=== PATIENT | female | born 1975 | race Caucasian/White ===

== ENCOUNTER 2023-05-07 12:48 | Emergency (ER) | payer OTHER, SELFPAY ==
[2023-05-07 12:52] VITALS: BP 141/82
[2023-05-07] MEDS: ZOFRAN ODT (ORALLY DISINTEGRATING) 4 MG PO (13:02)
[2023-05-07 13:36] LABS: Urine Albumin Negative (Neg - Trace); Urine Bilirubin Negative (Negative); Urine Character Clear (Clear); Urine Color Yellow; Urine Glucose Negative (Negative); Urine Ketone Negative (Negative); Urine Leukocyte Negative (Negative); Urine Nitrite Negative (Negative); Urine Occult Blood 2+ (Negative); Urine Urobilinogen Negative (Neg - 1+)
[2023-05-07 13:52] LABS: Urine White Cell None Seen /HPF (0-5)
[2023-05-07 13:54] LABS: HCG, Urine Qualitative Screen Negative
--- NOTE | 2023-05-07 13:58 | ED.GENMED ---
History of Present Illness
<Azalia Romero PA-C - Last Filed: 05/07/23 18:02>
General
Chief Complaint: Abdominal Pain
Source: patient
Exam Limitations: none
Time Seen by Provider: 05/07/23 13:41
Nursing documentation reviewed up to this point in time: agreed with
Travel History
Have you had any contact with someone who has COVID-19?: No
Do you have any symptoms of coronavirus? Fever > 100 degrees, chills, cough, shortness of breath, sore throat, loss of taste or smell, muscle aches, or headache?: No
History of Present Illness
History of Present Illness:
Patient is a 47-year-old female with history of kidney stones presenting for evaluation of nausea and vomiting. Symptoms started acutely this morning around 8 AM and reports 5 episodes of vomiting since. She has had multiple bowel movements today
but denies any diarrhea or blood in her stool. Patient does report that on Saturday she had an acute onset episode of left upper abdominal pain that lasted about an hour and a half. That episode was associated with some mild nausea but no vomiting.
She denies any alleviating or exacerbating factors to abdominal pain on Saturday. She has no abdominal pain currently.
She denies any fever, chills, chest pain, shortness of breath. No known sick contacts. Patient reports drinking very little alcohol.
Patient does have a history of kidney stones but states that this pain feels very different than prior kidney stones. On imaging performed many years ago she was incidentally found to have gallstones. She at first thought pain she had on Saturday
was ' gallbladder attack '. Pain resolved after an hour and a half and she felt fine yesterday. Denies any current abdominal pain
Last menstrual period was 3 weeks ago.
Past History
<Azalia Romero PA-C - Last Filed: 05/07/23 18:02>
Past History
ED Past Medical History: Other (kidney stones)
ED Past Surgical History: Urological (cysto/stent)
Social History
Tobacco: Non-smoker
Alcohol: Occasional
Drug: None
Living: with family
Phy Exam
<Azalai Romero PA-C - Last Filed: 05/07/23 18:02>
Physical Exam
Physical Exam:
General: In no apparent distress, non-toxic appearing
Vitals: Vital signs stable, patient afebrile
HEENT: Atraumatic, normocephalic; pupils equal round and reactive to light bilaterally, protecting airway, dry mucous membranes
Neck: appears supple, no meningeal signs
CV: Regular rate and rhythm, heart sounds normal, no evidence of cyanosis
Resp: No evidence of respiratory distress, lungs clear
Abd: Soft, mild diffuse tenderness without rebound or guarding, most significant in epigastric region; non-distended, no CVA tender
Extremities: No deformities, no evidence of cyanosis or edema
Neuro: alert and oriented x 3; grossly intact
Psych: Normal affect
Skin: Intact
Course
<Azalia Romero PA-C - Last Filed: 05/07/23 18:02>
Orders/Labs/Results
Orders:
Orders
05/07/23 13:01
Ondansetron Orally Disint [Zofran Odt (Orally Disintegrating)] 4 mg .ROUTE .[facility] ONE
Ondansetron Orally Disint [Zofran Odt (Orally Disintegrating)] 4 mg PO NOW STA
05/07/23 13:04
Test Result ONCE
05/07/23 13:08
HCG, Urine Qualitative Screen Urgent
Date Specimen was Collected: 05/07/23
Time Specimen was Collected: 13:04
Urinalysis Reflex To Culture Urgent
Date Specimen was Collected: 05/07/23
Time Specimen was Collected: 13:04
Urine Microscopic Reflex Cult Urgent
05/07/23 13:59
0.9% Sodium Chloride 1000 ml [Nss] 1,000 ml IV BOLUS
05/07/23 14:04
US Abdomen Complete/Upper Urgent
Comment:
Reason For Exam: RUQ pain
05/07/23 14:27
Complete Blood Count/With Diff Urgent
Comprehensive Metabolic Panel Urgent
Lipase Urgent
05/07/23 14:32
Mag Hydrox/Al Hydrox/Simeth [Maalox] 30 ml Phenobarb/Hyoscy/Atropine/Scop [] 10 ml PO NOW
Ondansetron Injectable [Zofran] 4 mg IV NOW STA
Pantoprazole [Protonix IV] 40 mg IV NOW STA
05/07/23 15:44
Phenobarb/Hyoscy/Atropine/Scop [] 10 ml .ROUTE .[facility] ONE
05/07/23 15:45
Mag Hydrox/Al Hydrox/Simeth [Maalox] 30 ml .ROUTE .[facility] ONE
Abnormal Lab Results
05/07/23 05/07/23
13:08 14:27
MCH 32.3 H pg
(27.0-31.0)
BUN 29 H mg/dl
(7-17)
Ur Occult Blood Reflex 2+ A
(Negative)
Urine RBC 3-6 A /HPF
(0-2)
05/07/23 14:27
05/07/23 14:27
Vital Signs
Initial and Last Documented VS:
Initial Vital Signs
Temp Pulse Resp BP Pulse Ox
98.1 F 77 20 141/82 98
05/07/23 12:52 05/07/23 12:52 05/07/23 12:52 05/07/23 12:52 05/07/23 12:52
Last Documented Vital Signs
Temp Pulse Resp BP Pulse Ox
98.1 F 65 18 116/73 99
05/07/23 12:52 05/07/23 14:29 05/07/23 14:29 05/07/23 16:04 05/07/23 16:04
<Uday Villalpando MD - Last Filed: 05/07/23 20:48>
Orders/Labs/Results
Orders:
Orders
05/07/23 13:01
Ondansetron Orally Disint [Zofran Odt (Orally Disintegrating)] 4 mg .ROUTE .[facility] ONE
Ondansetron Orally Disint [Zofran Odt (Orally Disintegrating)] 4 mg PO NOW STA
05/07/23 13:04
Test Result ONCE
05/07/23 13:08
HCG, Urine Qualitative Screen Urgent
Date Specimen was Collected: 05/07/23
Time Specimen was Collected: 13:04
Urinalysis Reflex To Culture Urgent
Date Specimen was Collected: 05/07/23
Time Specimen was Collected: 13:04
Urine Microscopic Reflex Cult Urgent
05/07/23 13:59
0.9% Sodium Chloride 1000 ml [Nss] 1,000 ml IV BOLUS
05/07/23 14:04
US Abdomen Complete/Upper Urgent
Comment:
Reason For Exam: RUQ pain
05/07/23 14:27
Complete Blood Count/With Diff Urgent
Comprehensive Metabolic Panel Urgent
Lipase Urgent
05/07/23 14:32
Mag Hydrox/Al Hydrox/Simeth [Maalox] 30 ml Phenobarb/Hyoscy/Atropine/Scop [] 10 ml PO NOW
Ondansetron Injectable [Zofran] 4 mg IV NOW STA
Pantoprazole [Protonix IV] 40 mg IV NOW STA
05/07/23 15:44
Phenobarb/Hyoscy/Atropine/Scop [] 10 ml .ROUTE .[facility] ONE
05/07/23 15:45
Mag Hydrox/Al Hydrox/Simeth [Maalox] 30 ml .ROUTE .[facility] ONE
Abnormal Lab Results
05/07/23 05/07/23
13:08 14:27
MCH 32.3 H pg
(27.0-31.0)
BUN 29 H mg/dl
(7-17)
Ur Occult Blood Reflex 2+ A
(Negative)
Urine RBC 3-6 A /HPF
(0-2)
05/07/23 14:27
05/07/23 14:27
Vital Signs
Initial and Last Documented VS:
Initial Vital Signs
Temp Pulse Resp BP Pulse Ox
98.1 F 77 20 141/82 98
05/07/23 12:52 05/07/23 12:52 05/07/23 12:52 05/07/23 12:52 05/07/23 12:52
Last Documented Vital Signs
Temp Pulse Resp BP Pulse Ox
98.1 F 65 18 116/73 99
05/07/23 12:52 05/07/23 14:29 05/07/23 14:29 05/07/23 16:04 05/07/23 16:04
<Azalia Romero PA-C - Last Filed: 05/07/23 18:02>
MDM/Problems Addressed
Differential Diagnosis Includes:
Biliary colic, cholecystitis, choledocholithiasis, pancreatitis, gastritis, gastric ulcer, nephrolithiasis, doubt appendicitis or diverticulitis
MDM/Problems Addressed:
Patient is a 47-year-old female with history of nephrolithiasis and known cholelithiasis presenting for evaluation of persistent nausea/vomiting this morning with recent episode of acute upper abdominal pain 2 days ago. Patient received 4 mg Zofran
while in waiting room. She currently reports some lingering nausea but no abdominal pain at this time. No urinary symptoms, fever, chills, chest pain. Patient is mildly hypertensive, otherwise vital signs stable. She is afebrile and
nontoxic-appearing. Physical exam as document above. Somewhat dry mucous membranes. Abdomen is soft, diffusely tender most significant in epigastric region. Given significant history of kidney stones�will check urine, although patient feels
competent this is not a kidney stone. Given known incidental finding of gallstones�will start with basic labs lipase, abdominal ultrasound. Patient in no current distress or pain�declines analgesia at this time. Starting IV fluids
CBC without any clinically significant abnormalities. CMP with elevation in BUN likely due to dehydration. Otherwise no clinically significant abnormalities. Lipase is normal. Urine shows some blood but no evidence of infection. Patient has
known kidney stones which is likely attributing to blood in urine. Abdominal ultrasound shows small nonobstructing right kidney stone otherwise no significant abnormalities. No evidence of cholecystitis.
In to reexamine patient. Patient has had no episodes of vomiting while in emergency department. She remains without abdominal pain. Her abdomen remains soft, mildly tender�which may be related to repetitive episodes of vomiting earlier today.
Workup here has been negative. She has no elevation in white blood cell count, liver enzymes, remains afebrile-do not suspect acute gallbladder disease. Symptoms seem consistent with possible gastritis. Stable for discharge with return
precautions. Will provide general surgeon referral if possible biliary colic episodes persist with known prior imaging with cholelithiasis. Patient comfortable with this plan. All questions answered.
Chronic conditions affecting care:
Nephrolithiasis, cholelithiasis
Acute Exacerbation and/or Progression of Chronic Illness:
N/A
<Azalia Romero PA-C - Last Filed: 05/07/23 18:02>
*Radiology
Radiology exam reviewed: radiology read reviewed
*Pulse Oximetry
Patient hypoxic: no
*EKG
Interpreted by ED Provider?: NA
*Petroleum Transport Driver Interpretation
Rate: Petroleum Transport Driver- N/A
*Critical Care Note
Total Time (30-74mins, 75-104mins- exclusive of procedures): Not Applicable
Data Reviewed
Review of Other/Old Records Reveals: Radiology Studies
ED Attending Note
<Azalia Romero PA-C - Last Filed: 05/07/23 18:02>
-
Portions of this chart may have been created with voice recognition software.� Occasional wrong word or��sound alike� substitutions may have occurred due to the inherent limitations of voice recognition software.
<Uday Villalpando MD - Last Filed: 05/07/23 20:48>
ED Attending Note
Patient seen and examined by attending physician: Yes
ED Attending Note:
Patient with history of gallstones and kidney stones, presents to ED secondary to sudden onset of upper abdominal pain associated with nausea sensation, which has been intermittent over the past 3 days. Denies loss of appetite. Denies fever or
chills. Abdominal pain described as sharp, nonradiating, without any alleviating or exacerbating factors. Denies trauma. Denies recent illness. Denies recent change in diet. Patient has taken number [id number] supplements. Patient states
that her pain related to kidney stones, is always in her back.
Physical Exam
General: mild painful distress, not acutely ill. afebrile
Head: nc/at. eomi
Neck: supple. no meningeal signs.
Heart: s1/s2 regular rate and rhythm, no murmur. equal radial pulses.
Lungs: no acute respiratory distress. clear bilaterally
Abdomen: normal bowel sounds. mild epigastric tenderness
Neuro: alert and oriented. no focal neurological deficits
Skin: no rash
Psychiatric: well kept. interactive and cooperative
Extremities: no edema. no calf tenderness.
Will check blood work, abdominal US, IVF/pain medication, and reassess.
Patient with an unremarkable workup in ED, including blood work and ultrasound abdomen. History and exam consistent with likely nonspecific gastritis versus biliary colic versus less likely renal colic. Patient will be discharged home in stable
condition, with referral to general surgeon for reevaluation as outpatient, in light of previous CT scan which had revealed cholelithiasis. In the meantime, advised diet modification along with PPI. Advised return to ED with worsening symptoms,
i.e. fever/worsening pain/vomiting. Patient expresses understanding at time of discharge.
Discharge Plan
Departure
Patient Disposition: Home (Routine Discharge)
Date of Disposition: 05/07/23
Time of Disposition: 15:38
Patient with high blood pressure during this ER visit?: No
Condition: Good
Covid-19: Not Applicable
Discharge Problem:
Gastritis, Biliary colic
Instructions: Gastritis (DC), Gallstones (DC), Ulcer and Gastritis Diet
Prescriptions:
New
ondansetron 4 mg tablet,disintegrating
4 mg PO TIDPRN PRN (Reason: nausea/vomiting) Qty: 7 0RF
No Action
cetirizine [Zyrtec] 10 MG tablet,chewable
10 mg PO DAILY
levofloxacin 500 MG tablet
500 mg PO DAILY Qty: 7 0RF
ondansetron 4 MG tablet,disintegrating
4 mg PO TIDPRN PRN (Reason: nausea/vomiting) Qty: 6 0RF
hydrocodone-acetaminophen [[place]] 1 EACH tablet
1 ea PO Q4HPRN PRN (Reason: severe pain) Qty: 8 0RF
tamsulosin 0.4 MG capsule
0.4 mg PO DAILY Qty: 14 0RF
Referrals:
Gordon Gorman DO [Family Provider] -
Tre Rosenbaum MD [Active] - Follow up in 10 days
Activity Restrictions/Additional Instructions:
- Return to the emergency department any high fevers return to the emergency department with any high fevers, severe abdominal pain, intractable nausea/vomiting, severe back pain, inability to urinate, inability keep any food down, signs of severe
dehydration, worsening current symptoms, or any other concerns
-You can take Zofran as needed for persistent nausea. You can take this every 8 hours
-Is important to stay well-hydrated, eat bland diet for the next few days and advance as tolerated
-As discussed�there was a small, nonobstructing kidney stone seen on the left side. You can follow-up with urology if needed
-You can follow-up with a general surgeon for further evaluation/management of gallstones
Interventions
Interventions:
*Risk Screen - Suicide Last Done: 05/07/23 15:00
*General Assessment Last Done: 05/07/23 14:25
*Neglect/Abuse Screening Last Done: 05/07/23 15:00
ED- Fall Risk Assessment Last Done: 05/07/23 14:25
*ED COVID-19 Vaccine History Last Done: 05/07/23 15:00
*Nursing Disposition Last Done: 05/07/23 16:07
AU-Manbrs-Jqsitmoimz Assessment Last Done: 05/07/23 14:25
Discharge Date and Time
Discharge Date/Time: 05/07/23 16:08
[2023-05-07] MEDS: NSS 1000 IV (14:23)
[2023-05-07 14:29] VITALS: BP 109/74
[2023-05-07 14:53] LABS: % Basophils 0.3 % (0-2); % Eosinophils 1.5 % (0-6); % Immature Granulocytes 0.2 % (0-0.5); % Lymphocytes 25.4 % (20.5-51.1); % Monocytes 7.6 % (1.7-9.3); Absolute Eosinophils 0.1 10^3/uL (0-0.7); Absolute Lymphocytes 1.5 10^3/uL (1.2-3.4); Absolute Monocytes 0.5 10^3/uL (0.1-0.6); Absolute Neutrophils 3.9 10^3/uL (1.4-6.5); Hematocrit 40.7 % (37.0-47.0); Hemoglobin 14.1 g/dL (12.0-16.0); Mean Corp Hgb Conc. 34.6 g/dL (33.0-37.0); Mean Corpuscular Hgb 32.3 pg (27.0-31.0); Mean Corpuscular Volume 93.1 fL (81.0-99.0); Mean Platelet Volume 9.5 fL (7.4-10.4); Nucleated Red Blood Cells % 0 %; Platelet Count 194 10^3/uL (130-400); Red Blood Cell Count 4.37 10^6/uL (4.20-5.40); Red Cell Dist. Width 12.7 % (11.5-14.5); White Blood Cell Count 5.9 10^3/uL (4.8-10.8)
[2023-05-07 14:59] LABS: ALT (SGPT) 17 U/L (0-35); AST (SGOT) 23 U/L (14-36); Albumin 4.5 g/dl (3.5-5.0); Alkaline Phosphatase 56 U/L (38-126); Blood Urea Nitrogen 29 mg/dl (7-17); Calcium 9.7 mg/dl (8.4-10.2); Carbon Dioxide 24 mmol/L (22-30); Chloride 106 mmol/L (98-107); Glucose 95 mg/dl (70-99); Lipase 164 U/L (23-300); Potassium 4.2 mmol/L (3.5-5.1); Sodium 136 mmol/L (135-145); Total Bilirubin 0.3 mg/dl (0.2-1.3); Total Protein 7.2 g/dl (6.3-8.2); eGFR > 60.00
[2023-05-07 15:11] VITALS: BP 107/72
[2023-05-07] MEDS: MAALOX 40 PO (15:46)
[2023-05-07] MEDS: ZOFRAN 4 MG IV (15:46)
[2023-05-07] MEDS: PROTONIX IV 40 MG IV (15:46)
[2023-05-07 16:00] VITALS: BP 107/73
[2023-05-07 16:04] VITALS: BP 116/73
== END 2023-05-07 16:08 | disposition home or self-care (01) ==
LOC: EMR 12:48
PROVIDERS: Emergency Medicine; Physician Assistant; EMERGENCY PHYSICIAN Emergency Medicine; FAMILY PHYSICIAN Family Medicine
DX: K29.70 Gastritis, unspecified, without bleeding (principal); K80.50 Calculus of bile duct without cholangitis or cholecystitis without obstruction; Z87.442 Personal history of urinary calculi
CPT/HCPCS: 99284; 96374; 96375; 96361; 76700; 80053; 81003; 81015; 81025; 83690; 85025